=== PATIENT | female | born 1970 | race Caucasian/White ===

== ENCOUNTER 2024-01-31 09:20 | Emergency (ER) | payer OTHER, SELFPAY ==
--- NOTE | ~2024-01-31 | CT_ITS ---
EXAMINATION: CT HEAD WITHOUT CONTRAST CT CERVICAL SPINE WITHOUT CONTRAST CLINICAL INFORMATION: Head injury. Pain. COMPARISON: None. TECHNIQUE: Contiguous axial imaging was performed from the skullbase to vertex without intravenous administration of contrast. Multidetector helical imaging was performed through the cervical spine. This CT examination was performed using dose optimization techniques as appropriate, variously including the following: *Automated exposure control *Adjustment of mA and/or kV according to patient size (this includes techniques or standardized protocols for targeted exams where dose is matched to indication/reason for exam; i.e. extremities or head) *Use of iterative reconstruction technique DLP: 447, 671 mGy-cm. FINDINGS: HEAD: There is no evidence of acute intracranial hemorrhage or territorial infarction. No abnormal midline shift is seen. Holder to white matter differentiation is well preserved. There is an incidental 3.8 x 2.3 cm high right frontal convexity arachnoid cyst mildly distorting the underlying right frontal lobe. 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 The ventricles are normal in size. Brain parenchymal attenuation is normal. A 2.3 x 3.2 x 0.7 cm left frontal scalp hematoma is visible with surrounding soft tissue swelling. The osseous structures are normal. The mastoid air cells and visualized portions of the paranasal sinuses are well aerated. CERVICAL SPINE: No acute fracture is identified in the cervical spine. There is severe disc space narrowing, a broad-based disc-osteophyte complex, and exuberant endplate sclerosis with endplate spurring at the C5-C6 level with moderate left foraminal narrowing. Mild anterior subluxation of this with a C3-C4 level with advanced left-sided hypertrophic facet arthropathy and subchondral cystic formation at the facet joint. Severe right-sided facet degeneration also visible the C2-C3 level with a small central disc protrusion. Mild reversal of the normal cervical lordosis evident. The atlantoaxial articulation is normally maintained. The paraspinal soft tissues are normal. The lung apices are clear. CT/CT cervical spine wo IV con IMPRESSION: 1. No acute intracranial pathology. No acute calvarial fracture. Left frontal scalp soft tissue contusion and hematoma. Incidental high right frontal convexity 3.8 cm arachnoid cyst. 2. No evidence of acute cervical spine traumatic injury. Multilevel cervical spondylosis and hypertrophic facet arthropathy. Electronically signed by: Clayton Sharpe MD 01/31/2024 02:27 PM EDT RP
[2024-01-31 09:33] VITALS: BP 135/79; PULSE 80; RESP 18; TEMP 36.8; O2SAT 98; BMI 34.2
--- NOTE | 2024-01-31 12:57 | ED.HEATRA ---
HPI - Head Injury General Chief complaint: Head Injury Stated complaint: Blurred Vision Head Injury 01/30/24 Time Seen by Provider: 01/31/24 12:55 Source: patient and family Mode of arrival: ambulatory Limitations: no limitations History of Present Illness HPI Narrative: Patient is a 54-year-old female who presents to the emergency department for evaluation. She reports yesterday a large metal fan fell from the ceiling striking her onto her head. She is experiencing a left-sided headache with intermittent sharp pains, blurred vision to the left eye, and a ringing sensation to her left ear. She takes a low-dose aspirin. She denies neck pain, chest pain, numbness or tingling of her extremities, dizziness, lightheadedness, nausea, vomiting, abdominal pain. Related Data Allergies Allergy/AdvReac Type Severity Reaction Status Date / Time Penicillins [PENICILLINS] Allergy Severe ANAPHYLAXIS Verified 01/31/24 09:34 strawberry Allergy Anaphylaxis Verified 01/31/24 09:34 Review of Systems Review of Systems: Yes all other systems are reviewed and are negative [facility]LY [facility] Past Medical History Attestation statement: The following information was validated with the patient. Source: old records reviewed Social History Social History Advance Directives: Yes Advance Directives Information Provided: Yes Advance Directives on File: No Do you have a plan to hurt others: No Plan Physical Exam Vital Signs: Vital Signs: Last Vital Signs Temp 98.2 F 01/31/24 09:33 Pulse 80 01/31/24 09:33 Resp 18 01/31/24 09:33 BP 135/79 01/31/24 09:33 Pulse Ox 98 01/31/24 09:33 O2 Del Method Room Air 01/31/24 09:33 BMI result Body Mass Index 34.2 Appearance: Alert.?Oriented to person, place and time. No acute distress.?Normal affect. Head: Normocephalic. Left frontal scalp hematoma Eyes: Pupils equal, round and reactive to light. EOMI. Conjunctiva and sclera normal? no periorbital ecchymosis. ENT: No septal hematoma, nares patent bilaterally. Negative davis sign. External auditory canal normal tympanic membrane pearly goins and intact bilaterally. . No lesions or lacerations of oropharynx. Uvula midline. Moist mucous membranes. Neck: Normal inspection.? Neck supple.??No palpable tenderness, step-off, deformities. CVS: Heart sounds normal. Normal heart rate and rhythm.? Pulses normal.?? Respiratory: No respiratory distress.? Lung sounds clear to auscultation bilaterally?? Skin: Skin warm and dry.? Normal skin color.? ? Extremities: No lower extremity edema.? Neuro: Moves all extremities spontaneously. Sensation intact bilaterally. CN II-XII intact. No focal neuro deficits. Course Reevaluation(s) Reevaluation #1: CT is without evidence of acute fracture, frontal scalp hematoma present, no ICH, no cervical spine fracture subluxation. Incidental finding of right frontal arachnoid cyst 3.[address]/CT head/brain wo IV con IMPRESSION: 1. No acute intracranial pathology. No acute calvarial fracture. Left frontal scalp soft tissue contusion and hematoma. Incidental high right frontal convexity 3.8 cm arachnoid cyst. 2. No evidence of acute cervical spine traumatic injury. Multilevel cervical spondylosis and hypertrophic facet arthropathy. Time: 14:34 Medications Administered Discontinued Medications Generic Name Dose Route Start Last Admin Trade Name Freq PRN Reason Stop Dose Admin Acetaminophen 975 mg 01/31/24 13:04 01/31/24 13:27 Acetaminophen 325 Mg Tablet PO 01/31/24 13:05 975 mg ONCE ONE Administration Medical Decision Making Medical Decision Making MDM Narrative: Patient is a 54-year-old female with past medical history of Hypertension, migraine, GERD, asthma presenting to emergency department for evaluation after head injury as per HPI. No focal neurological deficits, has frontal scalp hematoma as per PE portion of this note. CT head obtained to exclude ICH, SDH, fracture. Assessment visual acuity. Acetaminophen for headache. No focal neurological deficits. Overall well-appearing, nontoxic and afebrile. Differential Diagnosis Differential Diagnoses: The differential diagnosis associated with the presentation includes (See narrative above) Admission/Observation Consideration of admission/observation: Escalation of care including admission/observation considered Lab Data 01/31/24 12:58 01/31/24 12:58 Labs: Lab Results 01/31/24 Range/Units 12:58 WBC 5.5 (4.8-10.8) X10*3/uL RBC 4.50 (4.20-5.50) X10*6/uL Hgb 12.9 (12.0-16.0) g/dl Hct 39.4 (37.0-47.0) % MCV 87.6 (80.0-98.0) fL MCH 28.7 (27.0-33.0) pg MCHC 32.7 (31.0-35.0) g/dl RDW 13.1 (11.0-16.0) % Plt Count 230 (160-400) X10*3/uL MPV 10.7 (9.4-12.3) fL Immature Gran % (Auto) 0.2 (0.0-0.4) % Neut % (Auto) 56.6 (45-73) % Lymph % (Auto) 28.6 (20-40) % [place] % (Auto) 9.1 (2-11) % Eos % (Auto) 4.2 H (0-4) % Baso % (Auto) 1.3 (0-2) % Lymph # (Auto) 1.6 (1.2-4.9) X10*3/uL [place] # (Auto) 0.5 (0.1-1.2) X10*3/uL Eos # (Auto) 0.2 (0.0-0.4) X10*3/uL Baso # (Auto) 0.1 (0.0-0.2) X10*3/uL Abs Immat Gran (auto) 0.01 (0.00-0.03) X10*3/uL Absolute Neuts (auto) 3.1 (2.0-8.3) x10*3/uL Absolute Nucleated RBC 0.000 (0.0-0.012) X10*3/uL Nucleated RBC % (auto) 0.0 (0.0-0.2) /100WBC Sodium 144 (135-145) mmol/L Potassium 3.7 (3.3-5.1) mmol/L Chloride 109 H (96-108) mmol/L Carbon Dioxide 29 (22-29) mmol/L Anion Gap 10 L (12-20) BUN 12 (9-16) mg/dL Creatinine 0.79 (0.5-1.4) mg/dL Estim Creat Clear Calc 86.5 Estimated GFR > 60 Random Glucose 114 (60-115) mg/dL Calcium 8.9 (8.4-10.2) mg/dL Total Bilirubin 0.4 (0.0-1.0) mg/dL AST 16 (5-31) U/L ALT 13 (0-31) U/L Alkaline Phosphatase 91 (39-117) U/L Total Protein 6.8 (6.5-8.0) g/dL Albumin 4.0 (3.5-5.0) g/dL Independent Interpretation I performed an independent interpretation of an: CT Scan (Left frontal scalp hematoma, no ICH) Radiology Impression Discussion of test interpretation with radiology: I have reviewed the radiologist's reading. Radiologist Impression: CT/CT head/brain wo IV con IMPRESSION: 1. No acute intracranial pathology. No acute calvarial fracture. Left frontal scalp soft tissue contusion and hematoma. Incidental high right frontal convexity 3.8 cm arachnoid cyst. 2. No evidence of acute cervical spine traumatic injury. Multilevel cervical spondylosis and hypertrophic facet arthropathy. Independent Historian Clinical information obtained from an independent historian. History obtained from or confirmed by: Other (Daughter) External Record Review External record reviewed: Outpatient record Discharge Plan Discharge Clinical Impression: Concussion without loss of consciousness, Hematoma of frontal scalp, Arachnoid cyst Patient Disposition: Home, Self-Care Additional Instructions: Your CT scan does not show any acute injury, you do have a hematoma as discussed to the scalp over your left forehead. There was an incidental finding in the brain of a right frontal arachnoid cyst, commonly these are composed of cerebral spinal fluid and often times are asymptomatic/do not require any procedure or intervention. Please speak with your primary care doctor in regards to this findings, they will monitor you for worrisome signs including seizures, neurological deficits, cognitive impairment, dizziness, lightheadedness. You can take Tylenol 500 mg, 2 tablets (1,000mg) every 4-6 hours as needed for pain, but not to exceed 3 doses daily (3,000mg).? CT/CT head/brain wo IV con IMPRESSION: 1. No acute intracranial pathology. No acute calvarial fracture. Left frontal scalp soft tissue contusion and hematoma. Incidental high right frontal convexity 3.8 cm arachnoid cyst. 2. No evidence of acute cervical spine traumatic injury. Multilevel cervical spondylosis and hypertrophic facet arthropathy. Referrals: Physician,Unknown J [Primary Care Provider] - Print Language: [place]
[2024-01-31 13:02] LABS: MANUAL DIFF FLAG NO
[2024-01-31 13:03] LABS: Basophils Absolute Auto 0.1 X10*3/uL (0.0-0.2); Basophils Percent Auto 1.3 % (0-2); Eosinophils Absolute Auto 0.2 X10*3/uL (0.0-0.4); Eosinophils Percent Auto 4.2 % (0-4); Hematocrit 39.4 % (37.0-47.0); Hemoglobin 12.9 g/dl (12.0-16.0); Imm Gran Abs Auto 0.01 X10*3/uL (0.00-0.03); Imm Gran Pct Auto 0.2 % (0.0-0.4); Lymphocytes Absolute Auto 1.6 X10*3/uL (1.2-4.9); Lymphocytes Percent Auto 28.6 % (20-40); Mean Corpuscular HGB Conc 32.7 g/dl (31.0-35.0); Mean Corpuscular Hemoglobin 28.7 pg (27.0-33.0); Mean Corpuscular Volume 87.6 fL (80.0-98.0); Mean Platelet Volume 10.7 fL (9.4-12.3); Monocytes Absolute Auto 0.5 X10*3/uL (0.1-1.2); Monocytes Percent Auto 9.1 % (2-11); Neutrophils Absolute Auto 3.1 x10*3/uL (2.0-8.3); Neutrophils Percent Auto 56.6 % (45-73); Platelet Count 230 X10*3/uL (160-400); Red Cell Distribution Width 13.1 % (11.0-16.0); White Blood Count 5.5 X10*3/uL (4.8-10.8)
[2024-01-31 13:19] LABS: Alanine Aminotransferase 13 U/L (0-31); Alkaline Phosphatase 91 U/L (39-117); Anion Gap 10 (12-20); Aspartate Amino Transferase 16 U/L (5-31); Bilirubin Total 0.4 mg/dL (0.0-1.0); Blood Urea Nitrogen 12 mg/dL (9-16); Calcium 8.9 mg/dL (8.4-10.2); Carbon Dioxide 29 mmol/L (22-29); Chloride 109 mmol/L (96-108); Creatinine Clr Calc Pharmacy 86.5; Estimated Glomerular Filt Rate > 60; Glucose Random 114 mg/dL (60-115); Potassium 3.7 mmol/L (3.3-5.1); Sodium 144 mmol/L (135-145); Total Protein 6.8 g/dL (6.5-8.0)
[2024-01-31] MEDS: Acetaminophen 325 MG TABLET 975 MG PO (13:27)
[2024-01-31 14:55] VITALS: BP 135/79; PULSE 80; RESP 18; TEMP 36.8; O2SAT 98
== END 2024-01-31 14:56 | disposition home or self-care (01) ==
PROVIDERS: Physician Assistant Medical; Emergency Provider Emergency Medicine Emergency Medical Services
DX: S06.0X0A Concussion without loss of consciousness, initial encounter (principal); S00.03XA Contusion of scalp, initial encounter; W20.8XXA Other cause of strike by thrown, projected or falling object, initial encounter; G93.0 Cerebral cysts; Y93.9 Activity, unspecified; Y92.009 Unspecified place in unspecified non-institutional (private) residence as the place of occurrence of the external cause; Y99.9 Unspecified external cause status
CPT/HCPCS: 36415; 70450; 72125; 80053; 85025; 99283; 99284